=== PATIENT | female | born 1995 | race Caucasian/White ===

== ENCOUNTER 2017-08-08 20:10 | Emergency (ER) | payer SELFPAY ==
--- NOTE | 2017-08-08 21:43 | ER Document Report ---
HPI - HPI Patient complains to provider of: right wrist and thumb pain Onset: Other - about a week Pain Level: 4 Context: 21 yo female c/o right thumb, radial wirst pain after lifting heavy boxes at work 1 week ago. Got some better then recurred at work again. No hx carpal tunnel, no numbness. Associated Symptoms: None Exacerbated by: Movement Relieved by: Denies - ROS ROS below otherwise negative: Yes Systems Reviewed and Negative: Yes All other systems reviewed and negative - REPRODUCTIVE LMP: na Past Medical History - General Information source: Patient - Social History Smoking Status: Unknown if Ever Smoked Frequency of alcohol use: None Drug Abuse: None Lives with: Family Family History: Reviewed & Not Pertinent - Medical History Medical History: Negative Surgical Hx: Negative - Immunizations Immunizations up to date: Yes Hx Diphtheria, Pertussis, Tetanus Vaccination: Yes Vertical Provider Document - CONSTITUTIONAL Agree With Documented VS: Yes Exam Limitations: No Limitations General Appearance: No Apparent Distress - INFECTION CONTROL TRAVEL OUTSIDE OF THE [place] IN LAST 30 DAYS: No - HEENT HEENT: Normocephalic - NECK Neck: Supple - RESPIRATORY O2 Sat by Pulse Oximetry: 98 - MUSCULOSKELETAL/EXTREMETIES Musculoskeletal/Extremeties: MAEW, FROM, Tender - base of right thumb, thenar aspect thumb extending into radial wrist. Non tender snuffbox. N/V intact. - NEURO Level of Consciousness: Awake, Alert Motor/Sensory: No Motor Deficit, No Sensory Deficit - DERM Integumentary: Warm, Dry Course - Vital Signs Vital signs: Temp Pulse Resp BP Pulse Ox 98.7 F 85 16 141/79 H 98 08/08/17 20:19 08/08/17 20:19 08/08/17 20:19 08/08/17 20:19 08/08/17 20:19 Procedures - Immobilization Right Thumb Time completed: 21:50 Pre-Proc Neuro Vasc Exam: Normal Immobilizer type: Thumb spica Performed by: PCT Post-Proc Neuro Vasc Exam: Normal Alignment checked and good: Yes Discharge - Discharge Clinical Impression: Right wrist tendinitis Condition: Good Disposition: HOME, SELF-CARE Instructions: Anti-Inflammatory Medication ([facility]), Family Physicians / Practices , Temporary Splint ([facility]), Tendonitis ([facility]) Additional Instructions: splint for 3 days to rest the tendon modified work note motrin tylenol List of family practice doctors for follow-up Return to the emergency room any concerns Prescriptions: Ibuprofen [Motrin 800 mg Tablet] 800 mg PO Q8HP PRN #30 tablet PRN Reason: Forms: Restricted Release, Return to Work
[2017-08-08 22:08] VITALS: BP 144/98
== END 2017-08-08 22:08 | disposition home or self-care (01) ==
LOC: ER 20:10
PROC: 2W3CX1Z Immobilization of Right Lower Arm using Splint (ICD-10-PCS; principal; 2017-08-08)
DX: M77.9 Enthesopathy, unspecified (principal); M25.531 Pain in right wrist; M79.644 Pain in right finger(s); X50.0XXA Overexertion from strenuous movement or load, initial encounter
CPT/HCPCS: 99283

== ENCOUNTER 2017-11-16 21:56 | Emergency (ER) | payer SELFPAY ==
[2017-11-16 23:16] VITALS: BP 128/78
--- NOTE | 2017-11-17 00:11 | ER Document Report ---
ED General - General Chief Complaint: Swelling Stated Complaint: HAND PAIN Time Seen by Provider: 11/16/17 23:56 Mode of Arrival: Ambulatory Information source: Patient TRAVEL OUTSIDE OF THE [place] IN LAST 30 DAYS: No - HPI Patient complains to provider of: right hand numbness, right swelling behind the ear Notes: Patient is here with 2 complaints. The patient states that she has had right hand pain for the last several months. Over the last few weeks, she states that the hand has become numb. She denies any traumatic injury or fall. She does stock produce for living. She was seen here in July and was diagnosed with tendinitis and was placed in a cockup splint which she states seemed to help. She end up wearing the splint so much that she wore it out and does not have the splint for use anymore. She denies any recent falls or injuries. She denies redness. She denies fever. She states that she cannot fill any of her fingers or thumb. She also complains of swelling behind her right ear. She states that over the last few weeks she has noticed some swelling behind the right ear. She states that when she wears her glasses, it causes pain to the area and gives her headache, but it does not hurt otherwise. She denies any injury to this area. She denies any headache other than when she is wearing her glasses. She denies any nausea, vomiting, diarrhea. No redness. No blurred or loss vision. - Related Data Allergies/Adverse Reactions: No Known Allergies Allergy (Verified 11/29/13 11:36) Past Medical History - Social History Smoking Status: Unknown if Ever Smoked Family History: Reviewed & Not Pertinent Patient has suicidal ideation: No Patient has homicidal ideation: No Renal/ Medical History: Denies: Hx Peritoneal Dialysis - Immunizations Immunizations up to date: Yes Hx Diphtheria, Pertussis, Tetanus Vaccination: Yes Review of Systems - Review of Systems -: Yes All other systems reviewed and negative Physical Exam - Vital signs Vitals: Temp Pulse Resp BP Pulse Ox 98.4 F 81 18 128/78 H 98 11/16/17 23:15 11/16/17 23:15 11/16/17 23:15 11/16/17 23:15 11/16/17 23:15 - Notes Notes: GENERAL: alert, cooperative, nontoxic, no distress. HEAD: normocephalic, atraumatic EYES: conjunctiva pink without discharge, no external redness or swelling. EARS: no external swelling, no external redness, no mastoid redness, swelling, tenderness. Ear canals are clear without swelling or drainage. TMs pearly boles , no redness, no bulging, normal landmarks, no perforation. Patient is noted to have prominence of her skull behind the right ear. It is not soft, fluctuant or red. Is nontender to palpation. Does not appear to be a mass. NOSE: atraumatic, no external swelling. clear rhinorrhea noted. MOUTH/THROAT: mucous membranes moist and pink, posterior pharynx without erythema, swelling, exudate. No trismus or drooling. NECK: soft, supple, full range of motion, no meningismus. CHEST: no distress, lungs clear and equal throughout. No wheezing, rales, rhonchi. CARDIAC: regular rate and rhythm, no murmur, normal capillary refill, normal pulses. No peripheral edema noted. BACK: full range of motion, no CVA tenderness. EXTREMITIES: full range of motion of all extremities. No redness, no swelling. Decreased sensation to the fingers and thumb of her right hand. Brisk cap refill. Hand is warm and pink. Radial pulses normal. She has full range of motion and normal strength. NEURO: alert and oriented A&O3, no focal deficits, full range of motion of all extremities. PYSCH: appropriate mood, affect. Patient is cooperative. SKIN: pink, warm, dry, no rash. Course - Re-evaluation Re-evalutation: 11/17/17 00:09 Patient is nontoxic-appearing with stable vitals. She is here with complaints of right hand numbness as well as swelling behind the right ear. Right hand numbness has been for the last few weeks although she has had pain in the right hand for the last several months. She does not produce for a living and does a lot of repetitive movements. She was seen for the same problem in July was placed in a cock-up splint which seemed to help. The numbness over the last few weeks seems to be new. She has some decreased sensation to her fingers and thumb, but has completely normal cap refill, movement, strength, pulse. It is possible that some of this could be nerve compression from repetitive movement from her job. She will be placed back in a cock-up splint and will be placed on NSAIDs with a referral to hand. Regarding the swelling behind her right ear. This appears to be a prominence of her skull in this area. It is not red or soft or infectious appearing. Remainder of her ear exam is normal. Her neuro exam is normal. She has pain when she wears her glasses as the ear piece of her glasses hit this area. At this point does not appear to be life- threatening. I will refer her to ENT for evaluation of this area. The patient is noted to have elevated blood pressure during today's emergency department visit. The patient was informed of this finding. The patient was instructed that this may be related to pre-hypertension and requires further evaluation with a primary care provider. The patient has no hypertensive symptoms at this time. The patient's emergency department workup and current diagnosis were explained to the patient and or family. Follow-up instructions were provided. Medications if prescribed were discussed. Instructions for when to return to the emergency department including specific worrisome symptoms were discussed with the patient and/or family. - Vital Signs Vital signs: Temp Pulse Resp BP Pulse Ox 98.4 F 81 18 128/78 H 98 11/16/17 23:15 11/16/17 23:15 11/16/17 23:15 11/16/17 23:15 11/16/17 23:15 Procedures - Immobilization right wrist Pre-Proc Neuro Vasc Exam: Normal Immobilizer type: Cock-up Performed by: PCT Post-Proc Neuro Vasc Exam: Normal Alignment checked and good: Yes Discharge - Discharge Clinical Impression: Numbness of right hand, Right ear pain Condition: Stable Disposition: HOME, SELF-CARE Instructions: Carpal Tunnel Syndrome ([facility]) Additional Instructions: Wear splint as needed for comfort. Apply ice to sore area. Take medications as prescribed. Follow-up with the hand surgeon at the next available appointment. Follow-up with ENT at the next available appointment. Follow-up sooner for worsening pain, fever, redness, any further concerns. Your blood pressure was elevated during today's visit. Have this rechecked with your doctor. Prescriptions: Naproxen [Naprosyn] 500 mg PO BID #20 tablet Forms: Elevated Blood Pressure, Smoking Cessation Education Referrals: OSWALDO DREW DO [ACTIVE STAFF] - Follow up as needed ALICIA CHAN DO [ASSOCIATE] - Follow up as needed
== END 2017-11-17 00:46 | disposition home or self-care (01) ==
LOC: ER 21:56
PROC: 2W3CX1Z Immobilization of Right Lower Arm using Splint (ICD-10-PCS; principal; 2017-11-16)
DX: R20.0 Anesthesia of skin (principal); H92.01 Otalgia, right ear
CPT/HCPCS: 99283; L3908

== ENCOUNTER 2018-08-20 12:51 | Emergency (ER) | payer OTHER ==
--- NOTE | 2018-08-20 14:19 | ER Document Report ---
HPI - HPI Time Seen by Provider: 08/20/18 13:27 Pain Level: 4 Notes: Patient is a 22-year-old female who presents with chief complaint of right wrist pain. Patient reports the pain has been going on for approximately 1 year, states the pain is from her wrist up into her elbow. States she has not followed up with her primary care provider however she has been seen here several times for the same reason. Patient reports she was given a cockup splint in the past which significantly helped her pain however her dog has eaten a cockup splint. Patient reports that she usually takes Tylenol to help with her pain. - REPRODUCTIVE Reproductive: DENIES: : Past Medical History - General Information source: Patient - Social History Smoking Status: Never Smoker Frequency of alcohol use: None Drug Abuse: None Family History: Reviewed & Not Pertinent - Medical History Medical History: Negative Renal/ Medical History: Denies: Hx Peritoneal Dialysis Surgical Hx: Negative - Immunizations Immunizations up to date: Yes Hx Diphtheria, Pertussis, Tetanus Vaccination: Yes Vertical Provider Document - CONSTITUTIONAL Notes: PHYSICAL EXAMINATION: GENERAL: Well-appearing, well-nourished and in no acute distress. HEAD: Atraumatic, normocephalic. EYES: Pupils equal round extraocular movements intact, conjunctiva are normal. ENT: Nares patent NECK: Normal range of motion LUNGS: No respiratory distress Musculoskeletal: Normal range of motion to bilateral upper extremities, normal cap refill, motor and sensation distal to area of pain. No swelling, erythema or ecchymosis noted. NEUROLOGICAL: Normal speech, normal gait. PSYCH: Normal mood, normal affect. SKIN: Warm, Dry, normal turgor, no rashes or lesions noted. - INFECTION CONTROL TRAVEL OUTSIDE OF THE [place] IN LAST 30 DAYS: No Course - Re-evaluation Re-evalutation: Patient with ongoing chronic right arm pain, states she was diagnosed with carp al tunnel syndrome in the past. Patient requesting a new cockup splint as she states that her dog destroyed her recent cockup splint. Patient is going to follow-up with primary care. - Vital Signs Vital signs: Temp Pulse Resp BP Pulse Ox 98.9 F 107 H 16 151/76 H 98 08/20/18 12:55 08/20/18 12:55 08/20/18 12:55 08/20/18 12:55 08/20/18 12:55 Procedures - Immobilization Right wrist Pre-Proc Neuro Vasc Exam: Normal Immobilizer type: Cock-up Performed by: PCT Post-Proc Neuro Vasc Exam: Normal Discharge - Discharge Clinical Impression: Right arm pain Condition: Stable Disposition: HOME, SELF-CARE Additional Instructions: You are seen today for evaluation of your right arm pain. You please use the cockup splint as needed for support. Please keep the appointment you have scheduled with your primary care provider for follow-up. They may want to consider doing physical therapy considering you have had this pain for greater than 1 year. I would recommend taking ibuprofen 600 mg every 6 hours instead of using Tylenol as ibuprofen also has an anti-inflammatory component. Forms: Return to Work Referrals: RICH GEE MD [Primary Care Provider] - Follow up as needed
[2018-08-20 14:27] VITALS: BP 136/75
== END 2018-08-20 14:27 | disposition home or self-care (01) ==
LOC: ER 12:51
DX: M79.601 Pain in right arm (principal); M25.531 Pain in right wrist
CPT/HCPCS: 99283; L3908

== ENCOUNTER → 2018-08-24 | Outpatient (CLI) | payer OTHER ==
--- NOTE | 2018-08-24 18:49 | RADIOLOGY REPORT (SQ) ---
EXAM DESCRIPTION: U/S THYROID/SFT TISS HD NECK COMPLETED DATE/TIME: 08/24/2018 6:15 pm REASON FOR STUDY: R22.9 LOCALIZED SWELLING,MASS AND LUMP,UNSPECIFIED R22.9 LOCALIZED SWELLING, MASS AND LUMP, UNSPECIFIED COMPARISON: None. TECHNIQUE: Dynamic and static boles-scale images acquired of the right and left mastoid eminence. Donna ected additional color/power Doppler images recorded. All images stored to PACS. LIMITATIONS: None. FINDINGS: Patient indicates a palpable abnormality posterior to the right ear. Ultrasound of both the right and left mastoid eminence was performed. On the right side, a densely c alcified or ossified bony bump is present immediately deep to the subcutaneous fat. This probably re presents a benign a bony protuberance of the right mastoid eminence. No discrete lymph node is prese nt in this area. Comparison imaging of the left-sided is similar compared to the right IMPRESSION: Palpable abnormality on the right is likely the bony mastoid eminence. This is similar compared to the left side. TECHNICAL DOCUMENTATION: JOB ID: [id number] [employer]- All Rights Reserved Reading location - IP/workstation name: [email or web address]
== END ==
LOC: RAD 17:56
PROVIDERS: ATTEND Internal Medicine
DX: R22.9 Localized swelling, mass and lump, unspecified (principal)
CPT/HCPCS: 76536

== ENCOUNTER 2018-09-15 08:03 | Day surgery (SDC) | payer OTHER ==
[~2018-09-15 08:03] MED LIST: CEFAZOLIN 2 GM/D5W RTU 2 GM/50 ML RTUPB IV PRN
[2018-09-15] MEDS ORDERED: LIDOCAINE 2%/EPINEPHRINE INJ 20 ML VIAL ONE (08:19)
[2018-09-15] MEDS ORDERED: BACITRACIN ZINC OINTMENT 15 GM ONE (08:42)
[2018-09-15] MEDS ORDERED: PROMETHAZINE HCL INJ 25 MG/1 ML VIAL ONE (09:36)
[2018-09-15] MEDS ORDERED: ONDANSETRON HCL INJ/PF 4 MG/2 ML SDV ONE (09:36)
[2018-09-15] MEDS ORDERED: ACETAMINOPHEN 1,000 MG/100 ML RTUPB IV ONE (09:37)
[2018-09-15] MEDS ORDERED: MIDAZOLAM 2 MG/2 ML INJ ONE (09:37)
[2018-09-15] MEDS ORDERED: FENTANYL CITRATE INJ/PF 100 MCG/2 ML AMPUL ONE ×2 (09:37→13:01)
[2018-09-15] MEDS ORDERED: PROPOFOL INJ 200 MG/20 ML VIAL IV ONE (09:37)
[2018-09-15] MEDS ORDERED: LIDOCAINE 2%/EPINEPHRINE INJ 1.7 ML CARTRIDGE ONE (09:44)
--- NOTE | 2018-09-15 12:39 | SURGICARE OPERATIVE REPORT E ---
[facility] Oper[facility] NAME: GUANAKITO FLANNERY AGE: 23Y DATE OF SURGERY: 09/15/2018 ROOM: HISTORY: A 23-year-old male with a history of a right postauricular mass, presents today for excision of that right postauricular mass. Informed consent was obtained from the patient. PREOPERATIVE DIAGNOSIS: Right postauricular mass. POSTOPERATIVE DIAGNOSIS: Right postauricular osteoma. OPERATION: Excision of right postauricular osteoma by contouring SURGEON: HAKAN GOTTLIEB MD ANESTHESIA: General via LMA. PROCEDURE: After receiving informed consent from the patient, she was taken to the operating room and placed supine on the operating room table. After successful induction and placement of the LMA, the right neck was turned towards the left to extend that neck. The right postauricular mass was identified. A planned incision was marked and then infiltrated with 2% Xylocaine and 1:100,000 epinephrine. Patient then prepped and draped in sterile fashion. A 15 blade was used to make an incision through the subcutaneous tissue and down through the muscle and periosteum where the mass was identified to be an osteoma. Next, using the drill with a 3 mm cutting shahbaz, the osteoma was incrementally reduced in size. As the osteoma was burred down, margins were checked to ensure natural contour of the postauricular area and to ensure osteoma was appropriately reduced in size. This was successfully achieved. Bone wax was used to control bleeding on the osteoma. Next, the wound was then irrigated with copious amounts of normal saline. No bleeding was noted. The wound was then closed in layers. The periosteum and muscular layer was closed with 4-0 Monocryl, as was the dermal layer. Next, Dermabond, Mastisol, and Steri-Strips were applied and then a pressure dressing was applied in the form of Momo ear dressing. The patient was then given back to Anesthesia who successfully removed the LMA. The patient was then transferred to the Postanesthesia Care Unit in stable condition, spontaneous respiration, no complications. Estimated blood loss about 20 mL, fluid about 600 mL of crystalloid. DICTATING PHYSICIAN: HAKAN GOTTLIEB M.D. [id number] PHY#: [id number] ID: [id number] JOB#: [id number] ACCT: [id number] cc:HAKAN GOTTLIEB MD > JOSE R
== END 2018-09-15 13:47 | disposition home or self-care (01) ==
LOC: SC 08:03
PROVIDERS: ATTEND Otolaryngology
DX: D16.4 Benign neoplasm of bones of skull and face (principal); R22.0 Localized swelling, mass and lump, head
CPT/HCPCS: 64999; J2250; J3490; J3010; J2550; J2405; J2704; J0690; J0131; 300

== ENCOUNTER 2018-12-22 09:17 | Day surgery (SDC) | payer OTHER ==
[2018-12-22] MEDS ORDERED: KETOROLAC TROMETHAMINE INJ/PF 30 MG/1 ML SDV ONE (09:38)
[2018-12-22] MEDS ORDERED: ONDANSETRON HCL INJ/PF 4 MG/2 ML SDV ONE (09:38)
[2018-12-22] MEDS ORDERED: MIDAZOLAM 2 MG/2 ML INJ ONE (09:38)
[2018-12-22] MEDS ORDERED: FENTANYL CITRATE INJ/PF 100 MCG/2 ML AMPUL ONE ×2 (09:39→12:06)
[2018-12-22] MEDS ORDERED: LIDOCAINE 2% INJ (20 MG/ML) 20 ML MDV ONE (09:39)
[2018-12-22] MEDS ORDERED: ROCURONIUM BROMIDE INJ 50 MG/5 ML VIAL IV ONE (09:39)
[2018-12-22] MEDS ORDERED: PROPOFOL INJ 200 MG/20 ML VIAL IV ONE (09:39)
[2018-12-22] MEDS ORDERED: DEXAMETHASONE SOD PHOS INJ 10 MG/1 ML VIAL ONE (09:39)
[2018-12-22] MEDS ORDERED: GLYCOPYRROLATE INJ 0.4 MG/2 ML VIAL ONE (09:40)
[2018-12-22] MEDS ORDERED: NEOSTIGMINE METHYLSULFATE 10 MG/10 ML VIAL ONE (09:40)
[2018-12-22] MEDS ORDERED: LIDOCAINE 2%/EPINEPHRINE INJ 1.7 ML CARTRIDGE ONE (09:42)
[2018-12-22] MEDS ORDERED: POVIDONE-IODINE 5% OPH PREP SOLN 30 ML ONE (09:42)
[2018-12-22] MEDS ORDERED: INDIGOTINDISULFONATE SODIUM INJ 40 MG/5 ML AMPULE ONE (10:35)
--- NOTE | 2018-12-22 13:30 | SURGICARE OPERATIVE REPORT E ---
[facility] Operative Report NAME: GUANAKITO BOO AGE: 23Y DATE OF SURGERY: 12/22/2018 ROOM: HISTORY: A 23-year-old female with a history of a right postauricular osteoma. The patient had a contouring of that right postauricular osteoma a couple of months ago and is still complaining of a slight prominence in the right postauricular area, so she presents today for recontouring of the right postauricular osteoma. Informed consent was obtained from the patient. PREOPERATIVE DIAGNOSIS: RIGHT POSTAURICULAR OSTEOMA. POSTOPERATIVE DIAGNOSIS: RIGHT POSTAURICULAR OSTEOMA. PROCEDURE: Revision/excision of the right postauricular osteoma via contouring. SURGEON: HAKAN GOTTLIEB MD ANESTHESIA: General via endotracheal intubation. DESCRIPTION OF PROCEDURE: After receiving informed consent from the patient, she was taken to the operating room and placed supine on the operating table. After successful induction and intubation by Anesthesia the right postauricular area was exposed. The planned incision site was marked and infiltrated with 2% Xylocaine and 100,000 epinephrine. The patient was then prepped and draped in a sterile fashion. A 15 blade used to make an incision down through the subcutaneous tissues to the periosteum. The periosteum was then incised and the bone was exposed. Next, using drill bits a 4 mm cutting shahbaz and a 4 mm suzie shahbaz the right postauricular area was then incrementally reduced while paying attention to the natural contour of that area. Once enough of bone was taken down, the skin edges were then reapproximated and the area was palpated. It was determined that enough bone had been removed, so the drilling was stopped. Next, the wound was then irrigated with copious amounts of normal saline. Hemostasis obtained using bipolar electrocautery. The wound was then closed in layers using 5-0 Monocryl. Dermabond, Mastisol, and Steri-Strips were applied and then a Momo dressing was applied. The patient was then given back to Anesthesia who successfully extubated the patient without complications. Estimated blood loss about 10 mL. Fluids 500 mL Crystalloid. Patient then transferred to the postanesthesia care unit in stable condition with spontaneous respirations, no complications. DICTATING PHYSICIAN: HAKAN GOTTLIEB M.D. [id number] PHY#: [id number] ID: [id number] JOB#: [id number] ACCT: [id number] cc:HAKAN GOTTLIEB MD >
[2018-12-22] MEDS ORDERED: PROMETHAZINE HCL INJ 25 MG/1 ML VIAL ONE (14:47)
== END 2018-12-22 12:56 | disposition home or self-care (01) ==
LOC: SC 09:17
PROVIDERS: ATTEND Otolaryngology
DX: D16.9 Benign neoplasm of bone and articular cartilage, unspecified (principal); R22.0 Localized swelling, mass and lump, head; Z79.1 Long term (current) use of non-steroidal anti-inflammatories (NSAID)
CPT/HCPCS: 21011; J2250; J3490 ×3; J3010; J2710; J2405; J2704; J1100; J0690; J1885; J2550

== ENCOUNTER 2019-06-05 22:47 | Emergency (ER) | payer OTHER ==
--- NOTE | 2019-06-05 23:50 | ER Document Report ---
ED General - General Chief Complaint: Nonproductive Cough Stated Complaint: COUGH,DIFFICULTY BREATHING,THROAT PAIN Time Seen by Provider: 06/05/19 23:42 Primary Care Provider: HARISH GOOD MD [Primary Care Provider] - Follow up in 1 week Notes: 23-year-old female with no past medical history presents with dry cough for 5 weeks and dyspnea when she is having "coughing fits." Patient denies any fever after the first 2 days. Patient also states that when she coughs a lot her throat feels a little bit sore. Patient denies any ear pain, congestion, chest pain, or coughing up blood. Patient states she has tried multiple xyod-ddp-pwppioa medications including Robitussin, Mucinex, DayQuil/NyQuil with no relief. TRAVEL OUTSIDE OF THE [place] IN LAST 30 DAYS: No - Related Data Allergies/Adverse Reactions: No Known Allergies Allergy (Verified 08/20/18 12:53) Past Medical History - Social History Smoking Status: Never Smoker Family History: Reviewed & Not Pertinent Patient has suicidal ideation: No Patient has homicidal ideation: No - Past Medical History Cardiac Medical History: Denies: Hx Heart Attack, Hx Hypertension Pulmonary Medical History: Denies: Hx Asthma Neurological Medical History: Denies: Hx Cerebrovascular Accident, Hx Seizures Renal/ Medical History: Denies: Hx Peritoneal Dialysis GI Medical History: Denies: Hx Hepatitis, Hx Hiatal Hernia, Hx Ulcer Infectious Medical History: Denies: Hx Hepatitis Past Surgical History: Denies: Hx Hysterectomy, Hx Mastectomy, Hx Open Heart Surgery, Hx Pacemaker - Immunizations Immunizations up to date: Yes Hx Diphtheria, Pertussis, Tetanus Vaccination: Yes Review of Systems - Review of Systems Notes: Constitutional: Negative for fever. HENT: Negative for sore throat. Eyes: Negative for visual changes. Cardiovascular: Negative for chest pain. Respiratory: Positive for shortness of breath and nonproductive cough. Gastrointestinal: Negative for abdominal pain, vomiting or diarrhea. Genitourinary: Negative for dysuria. Musculoskeletal: Negative for back pain. Skin: Negative for rash. Neurological: Negative for headaches, weakness or numbness. 10 point ROS negative except as marked above and in HPI. Physical Exam - Vital signs Vitals: Temp Pulse Resp BP Pulse Ox 98.0 F 93 18 137/82 H 99 06/05/19 22:57 06/05/19 22:57 06/05/19 22:57 06/05/19 22:57 06/05/19 22:57 - Notes Notes: GENERAL: Well-appearing, well-nourished and in no acute distress. HEAD: Atraumatic, normocephalic. EYES: Extraocular movements intact, sclera anicteric, conjunctiva are normal. ENT: Nares patent, oropharynx clear without exudates. Moist mucous membranes. Uvula midline without edema. No trismus. No muffled voice. No WET PROCESS TECHNICIAN. NECK: Normal range of motion, supple without lymphadenopathy or JVD. LUNGS: Breath sounds clear to auscultation bilaterally and equal. No wheezes rales or rhonchi. Nonproductive cough. No accessory muscle use. No tripoding. No cyanosis. HEART: Regular rate and rhythm without murmurs, rubs or gallops. EXTREMITIES: Normal range of motion, no pitting or edema. No clubbing or cyanosis. NEUROLOGICAL: Cranial nerves II through XII grossly intact. Normal speech, normal gait. PSYCH: Normal mood, normal affect. SKIN: Warm, Dry, normal turgor, no rashes or lesions noted. Course - Re-evaluation Re-evalutation: 06/05/19 Nontoxic, well-appearing female presents for nonproductive cough with dyspnea while coughing. Patient is afebrile. Patient is satting 99% on room air. Lungs clear to auscultation bilaterally. Regular rate and rhythm. Uvula midline without edema. No WET PROCESS TECHNICIAN. No muffled voice. No trismus. PE is otherwise unremarkable. Patient to be discharged with prednisone, albuterol inhaler, and Tessalon Perles with close follow-up with PCP. Strict return precautions given. Patient voices understanding and agrees with plan of care. - Vital Signs Vital signs: Temp Pulse Resp BP Pulse Ox 98.0 F 93 18 137/82 H 99 06/05/19 23:08 06/05/19 22:57 06/05/19 23:08 06/05/19 23:08 06/05/19 23:08 Discharge - Discharge Clinical Impression: Cough Acute bronchitis Qualifiers: Bronchitis organism: unspecified organism Qualified Code(s): J20.9 - Acute bronchitis, unspecified Condition: Stable Disposition: HOME, SELF-CARE Instructions: Bronchitis ([facility]) Additional Instructions: Please take prednisone as prescribed. Use inhaler as needed. Please take Tessalon Perles as needed for cough. Please follow-up with your primary care doctor in 1 week if no relief in symptoms. Return immediately to ER if you start having any worsening symptoms, including coughing up blood, fever, chest pain, shortness of breath when not coughing, nausea/vomiting, worsening sore throat, inability to open your mouth, or any other symptoms that are concerning to you. Prescriptions: Benzonatate [Tessalon Perles 100 mg Capsule] 100 mg PO Q8HP PRN #40 capsule PRN Reason: Prednisone [Deltasone] 20 mg PO BID #10 tablet Albuterol Sulfate [Proair HFA Inhalation Aerosol 8.5 gm MDI] 2 puff IH Q4H PRN #1 mdi PRN Reason: Forms: Return to Work Referrals: HARISH GOOD MD [Primary Care Provider] - Follow up in 1 week
[2019-06-06 00:07] VITALS: BP 136/85
== END 2019-06-06 00:06 | disposition home or self-care (01) ==
LOC: ER 22:47
DX: J20.9 Acute bronchitis, unspecified (principal); R06.02 Shortness of breath; R06.00 Dyspnea, unspecified
CPT/HCPCS: 99283

== ENCOUNTER 2019-07-27 11:19 | Day surgery (SDC) | payer OTHER ==
[~2019-07-27 11:19] MED LIST changes: -CEFAZOLIN 2 GM/D5W RTU 2 GM/50 ML RTUPB IV PRN; +CEFAZOLIN SODIUM 2 GM in DEXTROSE 5%-WATER 100 ML IV PRN
[2019-07-27] MEDS ORDERED: HYDROMORPHONE HCL INJ/PF 2 MG/ML AMPULE ONE (12:06)
[2019-07-27] MEDS ORDERED: MIDAZOLAM 2 MG/2 ML INJ ONE (12:06)
[2019-07-27] MEDS ORDERED: ONDANSETRON HCL INJ/PF 4 MG/2 ML SDV ONE (12:06)
[2019-07-27] MEDS ORDERED: DEXAMETHASONE SOD PHOSPHATE INJ 4 MG/1 ML VIAL ONE (12:06)
[2019-07-27] MEDS ORDERED: PROPOFOL INJ 200 MG/20 ML VIAL IV ONE (12:06)
[2019-07-27] MEDS ORDERED: POVIDONE-IODINE 5% OPH PREP SOLN 30 ML ONE (12:08)
[2019-07-27] MEDS ORDERED: LIDOCAINE 2%/EPINEPHRINE INJ 1.7 ML CARTRIDGE ONE (12:08)
--- NOTE | 2019-07-27 13:54 | Operative Report ---
Operative Report-[facility] Operative Report: Date: 27 July 2019 History: Patient with a history of a right postauricular osteoma. She has had 2 previous contouring procedures of that right postauricular osteoma. Patient wears glasses and is complaining of an uneven area on that right side in the area of the contoured osteoma. Patient presents today for revision contouring right postauricular osteoma. Form consent was obtained from the patient Pre-operative diagnosis: Right postauricular osteoma Post operative diagnosis: Same as above Procedure: Revision contouring right postauricular osteoma [CPT = 42126] Surgeon: David Schultz MD, FACS, [facility] Anesthesia: GETA Procedure: In the holding area, the patient pointed out the area of discomfort. This was palpated and the irregularity was marked. After receiving informed consent the patient was taken to the operating room and placed supine on the operating table. After successful induction and intubation by anesthesia, the head was turned towards the left to expose the right postauricular area. The ear regularity was noted and an incision site was marked over this irregularity. The patient was prepped and draped in a sterile fashion. 15 blade was used to make an incision down through the periosteum into the bone. The irregularity, which was residual osteoma, was noted. Using a 3 mm cutting and a 3 mm suzie bur the irregularity, residual osteoma, was contoured so that it was no longer prominent. The area was palpated through the skin and irregularity was not prominent. The wound was then irrigated with saline. Hemostasis was obtained by bipolar electrocautery. The wound was closed using 4-0 Monocryl. Dermabond Steri-Strips and Mastisol was applied. A [place] ear dressing was then applied. The patient was then given back to anesthesia who successfully extubated the patient without any complications. Estimated blood loss: 5 mL Fluids: 100 mL The patient was then transported to the Post Anesthesia Care Unit in stable condition with spontaneous respiration. No complication.
== END 2019-07-27 14:32 | disposition home or self-care (01) ==
LOC: SC 11:19
PROVIDERS: ATTEND Otolaryngology
DX: D16.9 Benign neoplasm of bone and articular cartilage, unspecified (principal); L72.0 Epidermal cyst; R22.0 Localized swelling, mass and lump, head; J45.909 Unspecified asthma, uncomplicated; Z79.51 Long term (current) use of inhaled steroids
CPT/HCPCS: 21181; 00120; J2250; J3490 ×2; J0690; J1100; J1170; J2405; J7060; J2704; 120

== ENCOUNTER 2020-01-26 21:12 | Emergency (ER) | payer OTHER ==
[2020-01-26] MEDS ORDERED: HYDROCODONE/ACETAMINOPHEN 5-325 MG TABLET PO ONE (21:38)
--- NOTE | 2020-01-26 21:44 | ER Document Report ---
ED Medical Screen (RME) - General Chief Complaint: Leg Pain Stated Complaint: POST OP CALF PAIN.NUMBNESS Time Seen by Provider: 01/26/20 21:32 Primary Care Provider: HARISH GOOD MD [Primary Care Provider] - Follow up as needed TRAVEL OUTSIDE OF THE [place] IN LAST 30 DAYS: No - HPI Notes: 01/26/20 21:38 24-year-old female presents to the emergency room for evaluation of right calf pain status post having a right knee arthroscopic done yesterday by Dr. England, orthopedic surgeon. Patient states she started having dull aches yesterday after her surgery, but today she states that pain intensified, reports stabbing pain, worse with standing. Patient has been taking [place] for her pain without relief. Patient recently had surgery yesterday, is on control, no recent long car rides or flights, negative for factor V, has not had a history of DVTs in her past. Denies any shortness of breath or chest pain. She did call Dr. England's office and they advised her to go to the local emergency room for evaluation of her right calf pain. Patient reports she is having some numbness intermittently to her right lower foot. I have greeted and performed a rapid initial assessment of this patient. A comprehensive ED assessment and evaluation of the patient, analysis of test results and completion of the medical decision making process will be conducted by additional ED providers. PHYSICAL EXAMINATION: GENERAL: Well-appearing, well-nourished and in no acute distress. HEAD: Atraumatic, normocephalic. CV: s1, s2 regular LUNGS: No respiratory distress Musculoskeletal: Normal range of motion, right calf pain on palpation, positive Homans sign. Distal pulses +2 bilaterally and equally - Related Data Allergies/Adverse Reactions: No Known Allergies Allergy (Verified 08/20/18 12:53) Past Medical History - Past Medical History Cardiac Medical History: Denies: Hx Heart Attack, Hx Hypertension Pulmonary Medical History: Denies: Hx Asthma Neurological Medical History: Denies: Hx Cerebrovascular Accident, Hx Seizures Renal/ Medical History: Denies: Hx Peritoneal Dialysis GI Medical History: Denies: Hx Hepatitis, Hx Hiatal Hernia, Hx Ulcer Infectious Medical History: Denies: Hx Hepatitis Past Surgical History: Denies: Hx Hysterectomy, Hx Mastectomy, Hx Open Heart Surgery, Hx Pacemaker - Immunizations Immunizations up to date: Yes Hx Diphtheria, Pertussis, Tetanus Vaccination: Yes Doctor's Discharge - Discharge Referrals: HARISH GOOD MD [Primary Care Provider] - Follow up as needed
--- NOTE | 2020-01-26 22:59 | RADIOLOGY REPORT (SQ) ---
EXAM DESCRIPTION: US EXTREMITY VEINS UNILATERAL COMPLETED DATE/TME: 01/26/2020 21:32 CLINICAL HISTORY: 24 years, Female, pain in RLE, concern for DVT COMPARISON: None. TECHNIQUE: Axial 2-D grayscale images of the right lower extremity were acquired. Doppler was utilized. LIMITATIONS: None. FINDINGS: Right common femoral, femoral, popliteal, posterior tibial, peroneal, greater saphenous, and small saphenous veins demonstrate normal compressibility and phasicity. Superficial soft tissues show no suspicious finding. IMPRESSION: No evidence of deep venous thrombosis within the right lower extremity. copyright 2010 [employer]- All Rights Reserved
[2020-01-27] MEDS ORDERED: HYDROCODONE/ACETAMINOPHEN 5-325 MG TABLET PO ONE (02:00)
[2020-01-27] MEDS ORDERED: PROMETHAZINE HCL 25 MG TABLET PO ONE (02:19)
[2020-01-27] MEDS ORDERED: OXYCODONE HCL IR 5 MG TABLET PO ONE (02:19)
--- NOTE | 2020-01-27 02:24 | ER Document Report ---
ED Extremity Problem, Lower - General Chief Complaint: Post Surgical Pain Stated Complaint: POST OP CALF PAIN.NUMBNESS Time Seen by Provider: 01/26/20 21:32 Primary Care Provider: HARISH GOOD MD [Primary Care Provider] - Follow up as needed Notes: Patient is a 24-year-old female that comes to the emergency department for chief complaint of right calf pain. Patient is status post right knee arthroscopic procedure done by Dr. England at [facility]. Patient states that she started having a dull ache yesterday after she went home, she states that after wearing the compression stocking her symptoms were a lot worse when she work-up, she states that she had a lot of pain coming into the emergency department. She states her foot looks swollen as well. However her compression stocking was reportedly cut off, patient states that after the stocking was cut off her swelling and symptoms of pain did resolve. She has never had a blood clot before, she is on oral contraceptive, she does not smoke. She denies family history of DVT. She denies any fever or chills, she denies any other complaints. She states that at first the [place] she was taking did not work but now her pain is much improved but not completely gone. TRAVEL OUTSIDE OF THE [place] IN LAST 30 DAYS: No - Related Data Allergies/Adverse Reactions: No Known Allergies Allergy (Verified 08/20/18 12:53) Home Medications: norco, Past Medical History - General Information source: Patient - Social History Smoking Status: Never Smoker Frequency of alcohol use: None Drug Abuse: None Lives with: Family Family History: Reviewed & Not Pertinent Patient has homicidal ideation: No - Past Medical History Cardiac Medical History: Denies: Hx Heart Attack, Hx Hypertension Pulmonary Medical History: Denies: Hx Asthma Neurological Medical History: Denies: Hx Cerebrovascular Accident, Hx Seizures Renal/ Medical History: Denies: Hx Peritoneal Dialysis GI Medical History: Denies: Hx Hepatitis, Hx Hiatal Hernia, Hx Ulcer Infectious Medical History: Denies: Hx Hepatitis Past Surgical History: Denies: Hx Hysterectomy, Hx Mastectomy, Hx Open Heart Surgery, Hx Pacemaker - Immunizations Immunizations up to date: Yes Hx Diphtheria, Pertussis, Tetanus Vaccination: Yes Review of Systems - Review of Systems Constitutional: No symptoms reported EENT: No symptoms reported Cardiovascular: No symptoms reported Respiratory: No symptoms reported Gastrointestinal: No symptoms reported Genitourinary: No symptoms reported Female Genitourinary: No symptoms reported Musculoskeletal: See HPI Skin: No symptoms reported Hematologic/Lymphatic: No symptoms reported Neurological/Psychological: No symptoms reported Physical Exam - Vital signs Vitals: Temp Pulse Resp BP Pulse Ox 98.8 F 91 20 156/73 H 98 01/26/20 21:40 01/26/20 21:40 01/26/20 21:40 01/26/20 21:40 01/26/20 21:40 - Notes Notes: GENERAL: Alert, interacts well. No acute distress. Talkative and well-appearing HEAD: Normocephalic, atraumatic. EYES: Pupils equal, round, and reactive to light. Extraocular movements intact. ENT: Oral mucosa moist, tongue midline. Oropharynx unremarkable. Airway patent. LUNGS: Clear to auscultation bilaterally, no wheezes, rales, or rhonchi. No respiratory distress. Non-tender chest wall. HEART: Regular rate and rhythm. No murmur ABDOMEN: Soft, non-tender. Non-distended EXTREMITIES: Soft tissue swelling to the right knee with 3 surgical wounds/sutures. None of these are erythematous, notably tender, or draining. Calf is soft and no tenderness is noted, there is no significant edema or pitting edema to the lower extremity, normal distal coloration, dorsalis pedis, capillary refill and sensation. BACK: no cervical, thoracic, lumbar midline tenderness. No saddle anesthesia, normal distal neurovascular exam. Moves all extremities in full range of motion. NEUROLOGICAL: Alert and oriented x3. Normal speech. Cranial nerves II through XII grossly intact. Strength 5/5 in all extremities. PSYCH: Normal affect, normal mood. SKIN: Warm, dry, normal turgor. No rashes or lesions noted. Course - Re-evaluation Re-evalutation: Patient is talkative and well-appearing. Postop wounds do not appear infected, there is no significant swelling or edema to the lower extremity, normal coloration of the lower extremity, normal distal pulses and sensation, normal dorsalis pedis. No evidence of compartment syndrome. Venous Doppler ultrasound reviewed and is negative for DVT. Provided with pain medication here. Patient is requesting something for her leg that will help her sleep at night, she was provided with cyclobenzaprine after discussion of options. I discussed calling her orthopedic surgeon before discharge but patient has been waiting for several hours at this point, she states she will call them in the morning and requests immediate discharge. Because patient will call today, there are no concerning findings, I discussed return precautions, patient was discharged, stable and well-appearing at time of discharge. - Vital Signs Vital signs: Temp Pulse Resp BP Pulse Ox 98.5 F 76 16 120/64 100 01/27/20 02:39 01/27/20 02:39 01/27/20 02:39 01/27/20 02:39 01/27/20 02:39 Discharge - Discharge Clinical Impression: Right leg pain, Post-op pain Condition: Stable Disposition: HOME, SELF-CARE Additional Instructions: The ultrasound does not show a clot, your evaluation is reassuring, the dressing appears to have been too tight. This can still be adjusted if need be. You have been provided with a muscle relaxer, this can also help especially at night with your symptoms. Call your orthopedic provider tomorrow, follow-up as directed. Return if you worsen including severe worsening swelling or pain or any other concerning or worsening symptoms. Prescriptions: Cyclobenzaprine HCl 1 - 2 tab PO Q8H PRN #20 tablet PRN Reason: Referrals: HARISH GOOD MD [Primary Care Provider] - Follow up as needed
[2020-01-27 02:39] VITALS: BP 120/64
== END 2020-01-27 02:39 | disposition home or self-care (01) ==
LOC: ER 21:12
DX: M79.661 Pain in right lower leg (principal); G89.18 Other acute postprocedural pain; Z98.890 Other specified postprocedural states; Z79.3 Long term (current) use of hormonal contraceptives
CPT/HCPCS: 93971; 99284